=== PATIENT | female | born 1955 | race Hispanic/Latino ===

== ENCOUNTER 2024-04-29 18:51 | Emergency (ER) | payer MEDICAID ==
[~2024-04-29] VITALS: Ht 154.9 cm; Wt 65.8 kg
[2024-04-29 19:34] LABS: BASOPHILS # (AUTO) 0.02 K/uL (0.00-0.20); BASOPHILS % (AUTO) 0.2 % (0.0-5.0); EOSINOPHILS # (AUTO) 0.12 K/uL (0.00-0.70); EOSINOPHILS % (AUTO) 1.2 % (0.0-8.0); HEMATOCRIT 39.7 % (36-48); IMMATURE GRANULOCYTE ABSOLUTE 0.03 K/uL (0-1); LYMPHOCYTES % (AUTO) 19.5 % (21.0-51.0); MEAN CORPUSCULAR HEMOGLOBIN 29.9 pg (27.0-33.0); MEAN CORPUSCULAR HGB CONC 33.2 g/dL (32.0-36.0); MEAN CORPUSCULAR VOLUME 89.8 fL (79-99); MONOCYTES # (AUTO) 0.6 K/uL (0.1-1.0); MONOCYTES % (AUTO) 5.3 % (3.0-13.0); NEUTROPHILS # (AUTO) 7.6 K/uL (1.8-7.7); NEUTROPHILS % (AUTO) 73.5 % (40.0-77.0); PLATELET COUNT (AUTO) 296 K/uL (130-400); RED BLOOD CELL COUNT(AUTO) 4.42 MIL/uL (4.00-5.50); RED CELL DISTRIBUTION WIDTH 13.4 % (11.0-15.5); WHITE BLOOD COUNT (AUTO) 10.4 K/uL (4.8-10.8)
[2024-04-29 19:44] LABS: CREATININE 0.9 mg/dL (0.5-1.0); POTASSIUM 3.8 mmol/L (3.5-5.1)
[2024-04-29] MEDS: MORPHINE 4 MG SYG IVP ONE (19:55)
[2024-04-29] MEDS: MORPHINE 2 MG SYG ONE (19:56)
[2024-04-29] MEDS: KETOROLAC 30MG VIAL (30MG/ML) IVP ONE (21:21)
[2024-04-29] MEDS ORDERED: IBUP-2088 PO (22:00)
[2024-04-29] MEDS ORDERED: TRAM50TA4 PO (22:00)
[2024-04-29] MEDS ORDERED: LIDOP TP (22:00)
[2024-04-29] MEDS: LIDOCAINE 4% ADH..PATCH TP ONE (22:50)
[2024-04-30 00:06] VITALS: BP 116/74; PULSE 78; RESP 18; O2SAT 98
== END 2024-04-30 00:07 | disposition home or self-care (01) ==
LOC: EDH 18:51
DX: S46.812A Strain of other muscles, fascia and tendons at shoulder and upper arm level, left arm, initial encounter (principal); S46.811A Strain of other muscles, fascia and tendons at shoulder and upper arm level, right arm, initial encounter; E78.00 Pure hypercholesterolemia, unspecified; Z79.899 Other long term (current) drug therapy; Z98.890 Other specified postprocedural states; W18.39XA Other fall on same level, initial encounter; Y93.89 Activity, other specified; Y92.89 Other specified places as the place of occurrence of the external cause; Y99.8 Other external cause status
CPT/HCPCS: 99285; 96374; 96375; 84484; 80048; 85025; 36415; 71111; 72170; 73030 ×2; 93005; J2270; J1885